=== PATIENT | female | born 1990 | race Caucasian/White ===

== ENCOUNTER 2025-05-23 18:49 | Emergency (ER) | payer MEDICAID ==
[~2025-05-23] VITALS: Ht 162.6 cm; Wt 110.0 kg
[2025-05-23 18:51] VITALS: BP 143/83; PULSE 97; RESP 16; TEMP 36.7; O2SAT 100
== END 2025-05-23 23:54 | disposition left against medical advice (07) ==
LOC: ER 18:49
DX: R21 Rash and other nonspecific skin eruption (principal); Z53.21 Procedure and treatment not carried out due to patient leaving prior to being seen by health care provider